=== PATIENT | male | born 1965 | race Caucasian/White ===

== ENCOUNTER 2021-06-09 15:20 | Emergency (ER) | payer MEDICAID ==
[~2021-06-09] VITALS: Ht 170.2 cm; Wt 79.5 kg
[2021-06-09] MEDS ORDERED: PSEU-221 PO (21:48)
[2021-06-09] MEDS ORDERED: OXYMETAZOLINE HCL 0.05% 15 ML NASAL SPRAY NASAL ONE (22:00)
[2021-06-09 22:19] VITALS: BP 119/62
== END 2021-06-09 22:28 | disposition home or self-care (01) ==
LOC: EMS 15:20
DX: S93.402A Sprain of unspecified ligament of left ankle, initial encounter (principal); X50.1XXA Overexertion from prolonged static or awkward postures, initial encounter; Y93.01 Activity, walking, marching and hiking; Y92.89 Other specified places as the place of occurrence of the external cause; Y99.8 Other external cause status
CPT/HCPCS: 99283